=== PATIENT | male | born 1960 | race Two or more races ===

== ENCOUNTER 2017-02-03 07:32 | Observation (INO) | payer MEDICAID ==
[~2017-02-03] VITALS: Ht 177.8 cm; Wt 124.7 kg
[2017-02-03 08:42] VITALS: BP 142/88
[2017-02-03] MEDS ORDERED: SODIUM CHLORIDE 0.9% 1,000 ML IV ONE (09:53)
== END 2017-02-03 10:09 | disposition left against medical advice (07) | DRG 48 ==
LOC: ER 07:32 → OVERFLOW 08:11
PROVIDERS: ADMIT Emergency Medicine; ATTEND Emergency Medicine
DX: M54.13 Radiculopathy, cervicothoracic region (principal); I10 Essential (primary) hypertension; R06.02 Shortness of breath; H53.8 Other visual disturbances
CPT/HCPCS: 93005; 99285; G0378